=== PATIENT | male | born 1985 | race African-American/Black ===

== ENCOUNTER 2016-06-23 15:51 | Emergency (ER) | payer BC ==
[2016-06-23 16:00] VITALS: BP 150/88
--- NOTE | 2016-06-23 16:08 | EDM.PDOC ---
ED HPI Trauma - General Chief Complaint: Upper Extremity Injury/Pain Stated Complaint: SLIPPED, LANDED ON HAND Time Seen by Provider: 06/23/16 16:02 Source: Reports: Patient, RN, RN notes reviewed History Limitations: Reports: No limitations - History of Present Illness INITIAL COMMENTS - FREE TEXT/NARRATIVE: Patient presents to the ED at [facility] after he sustained a right hand injury. Patient states he was walking out of his house, when he slipped and fell , landing on his right hand. He complains of right hand swelling and pain. No previous injury or trauma. No previous right hand surgery. Allergies/ADRs: Allergies No Known Allergies Allergy (Verified 06/23/16 15:59) Home Medications: Ambulatory Orders . [No Known Home Meds] 06/23/16 [Confirmed 06/23/16] Review of Systems - Review of Systems Review Of Systems: See Below Constitutional: Denies: chills, fever, weakness Respiratory: Denies: shortness of breath, cough Cardiovascular: Denies: chest pain, palpitations Musculoskeletal: Reports: hand pain, joint pain (right hand), joint swelling ( right hand) Skin: Reports: no symptoms Neurological: Reports: no symptoms. Denies: dizziness, headache, numbness, paresthesia, tingling Trauma Exam - Physical Exam Exam: See Below Exam Limited By: No limitations General Appearance: Reports: alert, no apparent distress Head: Reports: atraumatic, normocephalic Respiratory Exam: Reports: no respiratory distress, lungs clear, normal breath sounds Cardiovascular: Reports: regular rate, rhythm Extremities: Reports: normal range of motion, pain with movement, tenderness Neurologic: Reports: alert, oriented x 3 Skin: Reports: Normal color, Warm/dry - [place] Coma Score Best Eye Response ([place]): (4) open spontaneously Best Verbal Response ([place]): (5) oriented Best Motor Response ([place]): (6) obeys commands [place] Total: 15 ED TRAUMA EXTREMITY PROCEDURES - Splinting Right Upper Extremity Splint site: Right Hand Pre-procedure NV status: normal Post-procedure NV status: normal Splint material: fiberglass Splint design: volar, posterior Applied & form fitted by: provider Provider post-splint application NV check: NV status normal, good position Complications: Yes Course - Vital Signs Last Recorded V/S: Last Vital Signs Temp 36.2 C 06/23/16 16:00 Pulse 49 L 06/23/16 16:00 Resp 14 06/23/16 16:00 BP 150/88 H 06/23/16 16:00 Pulse Ox 97 06/23/16 16:00 - Orders/Labs/Meds Orders: Active Orders 24 hr Category Date Time Status Hand Comp Min 3V Rt [CR] Stat Exams 06/23/16 16:04 Taken Departure - Departure Time of Disposition: 17:07 Disposition: Home, Self-Care 01 Condition: good Clinical Impression: Closed fracture of 5th metacarpal Qualifiers: Encounter type: initial encounter Metacarpal location: shaft Fracture alignment : nondisplaced Laterality: right Qualified Code(s): S62.356A - Nondisplaced fracture of shaft of fifth metacarpal bone, right hand, initial encounter for closed fracture Instructions: Cast or Splint Care, [id number], Metacarpal Fracture Forms: ED Department Discharge Additional Instructions: 1. Keep splint on at all times; do not remove 2. Avoid getting splint wet 3. May use Tylenol/Advil as needed for pain 4. Rest, elevate, and ice right hand several times a day 5. Make a follow up appointment at [facility] in 2 weeks for a repeat xray to check if it is healing ok ED Communication - ED Communication Date/Time Date: 06/23/16 Time Called: 16:35 - Discussed Case With (1) Discussed Case With (1): Radiologist Person/s Notified (1): Nikita العلي - Conversation Summary Radiology Reading Discussed with Radiologist: Yes Summary Comment: 5th metacarpal fracture; non-displaced; no angulation; closed - Problem List Review Problem List Initiated/Reviewed/Updated: Yes - My Orders Last 24 Hours: My Active Orders 06/23/16 16:04 Hand Comp Min 3V Rt [CR] Stat - Assessment/Plan Last 24 Hours: My Active Orders 06/23/16 16:04 Hand Comp Min 3V Rt [CR] Stat
== END 2016-06-23 17:19 | disposition home or self-care (01) ==
LOC: VM.ED 15:51
DX: S62.356A Nondisplaced fracture of shaft of fifth metacarpal bone, right hand, initial encounter for closed fracture (principal); W18.30XA Fall on same level, unspecified, initial encounter; Y92.009 Unspecified place in unspecified non-institutional (private) residence as the place of occurrence of the external cause
CPT/HCPCS: 29125; 73130-RT; 99283